=== PATIENT | female | born 1930 | race Caucasian/White ===

== ENCOUNTER 2017-02-04 08:37 | Emergency (ER) | payer MEDICARE, BC ==
[2017-02-04] MEDS ORDERED: Albuterol/Ipratropium 3.0-0.5 MG/3 ML Neb Soln NEB ONE (08:59)
--- NOTE | 2017-02-04 09:01 | EDM.PDOC ---
ED HPI GENERAL MEDICAL PROBLEM - General Chief Complaint: Respiratory Problem Stated Complaint: [id number] BACK PAIN COUGH Time Seen by Provider: 02/04/17 08:57 Source of Information: Reports: Patient History Limitations: Reports: No Limitations - History of Present Illness INITIAL COMMENTS - FREE TEXT/NARRATIVE: 86 yo white female c/o productive cough X 1 week and took Keflex last three days. PMHx. Pneumonia X 4 Onset Date: 01/28/17 Onset Time: 09:00 Duration: Day(s): Location: Reports: Chest, Generalized Severity: Moderate Improves with: Reports: None Worsens with: Reports: None Associated Symptoms: Reports: cough w sputum (yellow) Chest Pain Score (Numeric/FACES): 6 - Related Data Allergies Allergy/AdvReac Type Severity Reaction Status Date / Time alendronate sodium Allergy Cannot Verified 04/27/15 11:59 [From Fosamax] Remember lisinopril Allergy Cannot Verified 04/27/15 11:59 Remember pravastatin Allergy Cannot Verified 04/27/15 11:59 Remember simvastatin Allergy Cannot Verified 04/27/15 11:59 Remember Home Meds: Home Meds Hydrochlorothiazide [Hydrochlorothiazide] 25 mg PO DAILY 04/27/15 [History] LORazepam [Take Home: LORazepam 0.5 MG, 2 Tab Pack] 0.5 mg PO DAILY PRN [History] Losartan [Cozaar] 100 mg PO DAILY 04/27/15 [History] Lovastatin [Lovastatin] 20 mg PO BEDTIME 04/27/15 [History] Metoprolol Succinate [Metoprolol Succinate] 6.25 mg PO DAILY 04/27/15 [History] Raloxifene [Evista] 60 mg PO DAILY 04/27/15 [History] Acetaminophen 500 mg PO DAILY 04/28/15 [History] Ascorbic Acid [Vitamin C] 500 mg PO DAILY 04/28/15 [History] Aspirin [Ecotrin] 81 mg PO DAILY 04/28/15 [History] Fish Oil/[place]-3 Fatty Acids [Fish Oil 1,000 MG] 1 cap PO DAILY 04/28/15 [ History] ED ROS GENERAL - Review of Systems Review Of Systems: See Below Constitutional: Reports: Fever HEENT: Reports: No Symptoms Respiratory: Reports: Cough, Sputum Cardiovascular: Reports: No Symptoms Endocrine: Reports: No Symptoms GI/Abdominal: Reports: No Symptoms : Reports: No Symptoms Musculoskeletal: Reports: No Symptoms Skin: Reports: No Symptoms Neurological: Reports: No Symptoms Psychiatric: Reports: No Symptoms Hematologic/Lymphatic: Reports: No Symptoms Immunologic: Reports: No Symptoms ED EXAM, GENERAL - Physical Exam Exam: See Below Exam Limited By: No Limitations General Appearance: Alert, WD/WN, No Apparent Distress Eye Exam: Bilateral Eye: EOMI, PERRL Ears: Normal External Exam Nose: Normal Inspection Throat/Mouth: Normal Inspection, Normal Lips Head: Atraumatic, Normocephalic Neck: Normal Inspection, Supple Respiratory/Chest: No Respiratory Distress, Rhonchi Cardiovascular: Normal Peripheral Pulses, Regular Rate, Rhythm, No Edema GI/Abdominal: Normal Bowel Sounds Back Exam: Normal Inspection Extremities: Normal Inspection, Normal Range of Motion Neurological: Alert, Oriented, CN II-XII Intact Psychiatric: Normal Affect, Normal Mood Skin Exam: Warm, Dry, Intact, Normal Color Lymphatic: No Adenopathy Course - Vital Signs Last Recorded V/S: Last Vital Signs Temp 36.3 C 02/04/17 08:51 Pulse 96 02/04/17 09:07 Resp 16 02/04/17 08:51 BP 126/57 L 02/04/17 08:51 Pulse Ox 94 L 02/04/17 08:51 - Orders/Labs/Meds Orders: Active Orders 24 hr Category Date Time Status RT Aerosol Therapy [RC] ASDIRECTED Care 02/04/17 08:59 Ordered CULTURE SPUTUM + SMEAR [RM] Stat Lab 02/04/17 08:59 Uncollected Labs: Laboratory Tests 02/04/17 02/04/17 Range/Units 09:07 09:07 WBC 14.8 H (5.0-10.0) 10^3/uL RBC 4.45 (4.2-5.4) 10^6/uL Hgb 11.5 L (12.0-16.0) g/dL Hct 37.2 (37.0-47.0) % MCV 83.6 (80-100) fL MCH 25.8 L (27.0-34.0) pg MCHC 30.9 L (33.0-35.0) g/dL Plt Count 208 (150-450) 10^3/uL Neut % (Auto) 78.9 H (42.2-75.2) % Lymph % (Auto) 11.5 L (20.5-50.1) % [place] % (Auto) 8.0 (2-8) % Eos % (Auto) 1.3 (1.0-3.0) % Baso % (Auto) 0.3 (0.0-1.0) % Lactic Acid 1.6 (0.5-2.2) mmol/L Meds: Medications Discontinued Medications Generic Name Dose Route Start Last Admin Trade Name Cyndee PRN Reason Stop Dose Admin Albuterol/Ipratropium 3 ml 02/04/17 08:59 02/04/17 09:06 Duoneb 3.0-0.5 Mg/3 Ml NEB 02/04/17 09:00 3 ml ONETIME ONE Administration Ceftriaxone Sodium 1 gm 02/04/17 09:53 Rocephin IM 02/04/17 09:54 ONETIME ONE Departure - Departure Time of Disposition: 09:55 Disposition: Home, Self-Care 01 Condition: Good Clinical Impression: Pneumonia Qualifiers: Pneumonia type: due to unspecified organism Laterality: bilateral Lung location : lower lobe of lung Qualified Code(s): J18.9 - Pneumonia, unspecified organism - Discharge Information Instructions: Community-Acquired Pneumonia, Adult, [id number] Forms: ED Department Discharge Additional Instructions: Rest Increase intake of Fluids ( Juice / Water) Take medication as prescribed only: LEVAQUIN 500mg QD # 7 MUCINEX 600mg BID # 30 PRO AIR HFA MDI take 2 puffs Q 4hours as needed F/U w/ PCP - My Orders Last 24 Hours: My Active Orders 02/04/17 08:59 RT Aerosol Therapy [RC] ASDIRECTED CULTURE SPUTUM + SMEAR [RM] Stat - Assessment/Plan Last 24 Hours: My Active Orders 02/04/17 08:59 RT Aerosol Therapy [RC] ASDIRECTED CULTURE SPUTUM + SMEAR [RM] Stat
[2017-02-04] MEDS ORDERED: cefTRIAXone 1 GM Vial IM ONE (09:53)
== END 2017-02-04 10:18 | disposition home or self-care (01) ==
LOC: DL.ED 08:37
DX: J18.9 Pneumonia, unspecified organism (principal); Z88.8 Allergy status to other drugs, medicaments and biological substances; Z79.899 Other long term (current) drug therapy; Z79.82 Long term (current) use of aspirin
CPT/HCPCS: 36415; 71020; 83605; 85025; 87070; 87205; 94640; 96372; 99285; J0696; 87077; 87186; 99284

== ENCOUNTER 2018-10-02 08:24 | Emergency (ER) | payer MEDICARE, BC ==
[2018-10-02] MEDS: Ondansetron 4 MG/2 ML SDV IV ONE (08:50)
[2018-10-02] MEDS: Sodium Chloride 0.9% 1,000 ML IV ONE (08:50)
--- NOTE | 2018-10-02 09:01 | EDM.PDOC ---
ED HPI GENERAL MEDICAL PROBLEM - General Chief Complaint: General Stated Complaint: SICK Time Seen by Provider: 10/02/18 08:40 Source of Information: Reports: Patient History Limitations: Reports: No Limitations - History of Present Illness INITIAL COMMENTS - FREE TEXT/NARRATIVE: This 88 yo female patient reports to the ED due to nausea, vomiting and diarrhea. The patient reports her symptoms started last night and have continued throughout the night. The patient reports she feels a little weak at this time, but has no specific new aches or pain. The patient reports she has a hiatal hernia and has had episodes of nausea and vomiting, but normally only last 1-2 hours. The patient reports she is afraid of getting dehydrated. Onset: Today Duration: Constant Location: Reports: Abdomen Quality: Reports: Other Severity: Moderate Improves with: Reports: None Worsens with: Reports: None Context: Reports: Other Associated Symptoms: Reports: Nausea/Vomiting, Other (Diarrhea) - Related Data Allergies Allergy/AdvReac Type Severity Reaction Status Date / Time alendronate sodium Allergy Cannot Verified 10/02/18 08:37 [From Fosamax] Remember lisinopril Allergy Cannot Verified 10/02/18 08:37 Remember pravastatin Allergy Cannot Verified 10/02/18 08:37 Remember simvastatin Allergy Cannot Verified 10/02/18 08:37 Remember Home Meds: Home Meds Hydrochlorothiazide 25 mg PO DAILY 04/27/15 [History] LORazepam [Take Home: LORazepam 0.5 MG, 2 Tab Pack] 0.5 mg PO DAILY PRN [History] Losartan [Cozaar] 100 mg PO DAILY 04/27/15 [History] Lovastatin 20 mg PO BEDTIME 04/27/15 [History] Metoprolol Succinate 6.25 mg PO DAILY 04/27/15 [History] Raloxifene [Evista] 60 mg PO DAILY 04/27/15 [History] Acetaminophen 500 mg PO DAILY 04/28/15 [History] Ascorbic Acid [Vitamin C] 500 mg PO DAILY 04/28/15 [History] Aspirin [Ecotrin] 81 mg PO DAILY 04/28/15 [History] Fish Oil/[place]-3 Fatty Acids [Fish Oil 1,000 MG] 1 cap PO DAILY 04/28/15 [ History] Past Medical History HEENT History: Reports: Impaired Vision - Past Surgical History HEENT Surgical History: Reports: Cataract Surgery, Tonsillectomy Social & Family History - Caffeine Use Caffeine Use: Reports: Tea ED ROS GENERAL - Review of Systems Review Of Systems: ROS reveals no pertinent complaints other than HPI. ED EXAM, GENERAL - Physical Exam Exam: See Below Exam Limited By: No Limitations General Appearance: Alert, WD/WN, Moderate Distress Eye Exam: Bilateral Eye: EOMI, Normal Inspection, PERRL Ears: Normal External Exam, Normal Canal, Hearing Grossly Normal, Normal TMs Nose: Normal Inspection, Normal Mucosa, No Blood Throat/Mouth: Normal Inspection, Normal Lips, Normal Teeth, Normal Gums, Normal Oropharynx, Normal Voice, No Airway Compromise Head: Atraumatic, Normocephalic Neck: Normal Inspection, Supple, Non-Tender, Full Range of Motion Respiratory/Chest: No Respiratory Distress, Lungs Clear, Normal Breath Sounds, No Accessory Muscle Use, Chest Non-Tender Cardiovascular: Normal Peripheral Pulses, Regular Rate, Rhythm, No Edema, No Gallop, No JVD, No Murmur, No Rub GI/Abdominal: Normal Bowel Sounds, Soft, No Organomegaly, No Distention, No Abnormal Bruit, No Mass, Pelvis Stable, Rebound (RLQ), Tender (Female) Exam: Deferred Rectal (Female) Exam: Deferred Back Exam: Normal Inspection, Full Range of Motion, NT Extremities: Normal Inspection, Normal Range of Motion, Non-Tender, Normal Capillary Refill, No Pedal Edema Neurological: Alert, Oriented, CN II-XII Intact, Normal Cognition, Normal Gait, Normal Reflexes, No Motor/Sensory Deficits Psychiatric: Normal Affect, Normal Mood Skin Exam: Warm, Dry, Intact, Normal Color, No Rash Lymphatic: No Adenopathy Course - Vital Signs Last Recorded V/S: Last Vital Signs Temp 35.6 C 10/02/18 08:38 Pulse 97 10/02/18 08:38 Resp 16 10/02/18 08:38 BP 146/68 H 10/02/18 08:38 Pulse Ox 95 10/02/18 08:38 - Orders/Labs/Meds Orders: Active Orders 24 hr Category Date Time Status CULTURE URINE [RM] Urgent Lab 10/02/18 09:25 Received Labs: Laboratory Tests 10/02/18 10/02/18 10/02/18 Range/Units 08:49 08:49 08:49 WBC 13.7 H (5.0-10.0) 10^3/uL RBC 5.09 (4.2-5.4) 10^6/uL Hgb 15.2 D (12.0-16.0) g/dL Hct 47.7 H (37.0-47.0) % MCV 93.7 D (80-100) fL MCH 29.9 (27.0-34.0) pg MCHC 31.9 L (33.0-35.0) g/dL Plt Count 200 (150-450) 10^3/uL Neut % (Auto) 94.8 H (42.2-75.2) % Lymph % (Auto) 2.3 L (20.5-50.1) % [place] % (Auto) 2.7 (2-8) % Eos % (Auto) 0.2 L (1.0-3.0) % Baso % (Auto) 0.0 (0.0-1.0) % Sodium (135-145) mmol/L Potassium (3.6-5.0) mmol/L Chloride (101-111) mmol/L Carbon Dioxide (21.0-31.0) mmol/L Anion Gap BUN (7-18) mg/dL Creatinine (0.6-1.3) mg/dL Est Cr Clr Drug Dosing mL/min Estimated GFR (MDRD) BUN/Creatinine Ratio Glucose (74-105) mg/dL Lactic Acid 2.1 (0.5-2.2) mmol/L Calcium (8.4-10.2) mg/dl Total Bilirubin (0.2-1.0) mg/dL AST (10-42) IU/L ALT (10-60) IU/L Alkaline Phosphatase (42-121) IU/L Total Protein (6.7-8.2) g/dl Albumin (3.2-5.5) g/dl Globulin Albumin/Globulin Ratio Amylase 108 H (28-100) U/L Lipase 62 H (22-51) U/L Urine Color (YELLOW) Urine Appearance (CLEAR) Urine pH (5.0-9.0) Ur Specific [place] (1.005-1.030) Urine Protein (NEGATIVE) Urine Glucose (UA) (NEGATIVE) Urine Ketones (NEGATIVE) Urine Occult Blood (NEGATIVE) Urine Nitrite (NEGATIVE) Urine Bilirubin (NEGATIVE) Urine Urobilinogen (0.2-1.0) mg/dL Ur Leukocyte Esterase (NEGATIVE) Urine RBC /HPF Urine WBC (0-5/HPF) /HPF Ur Epithelial Cells (NOT SEEN) /HPF Urine Bacteria (0-FEW/HPF) /HPF Urine Mucus (NOT SEEN) /LPF 10/02/18 10/02/18 Range/Units 08:49 09:25 WBC (5.0-10.0) 10^3/uL RBC (4.2-5.4) 10^6/uL Hgb (12.0-16.0) g/dL Hct (37.0-47.0) % MCV (80-100) fL MCH (27.0-34.0) pg MCHC (33.0-35.0) g/dL Plt Count (150-450) 10^3/uL Neut % (Auto) (42.2-75.2) % Lymph % (Auto) (20.5-50.1) % [place] % (Auto) (2-8) % Eos % (Auto) (1.0-3.0) % Baso % (Auto) (0.0-1.0) % Sodium 138 (135-145) mmol/L Potassium 4.0 (3.6-5.0) mmol/L Chloride 101 (101-111) mmol/L Carbon Dioxide 23.0 (21.0-31.0) mmol/L Anion Gap 18.0 BUN 29 H (7-18) mg/dL Creatinine 1.3 (0.6-1.3) mg/dL Est Cr Clr Drug Dosing 26.82 mL/min Estimated GFR (MDRD) 39 BUN/Creatinine Ratio 22.30 Glucose 182 H (74-105) mg/dL Lactic Acid (0.5-2.2) mmol/L Calcium 9.0 (8.4-10.2) mg/dl Total Bilirubin 0.5 (0.2-1.0) mg/dL AST 26 (10-42) IU/L ALT 21 (10-60) IU/L Alkaline Phosphatase 76 (42-121) IU/L Total Protein 7.2 (6.7-8.2) g/dl Albumin 4.1 (3.2-5.5) g/dl Globulin 3.1 Albumin/Globulin Ratio 1.32 Amylase (28-100) U/L Lipase (22-51) U/L Urine Color Yellow (YELLOW) Urine Appearance Slightly cloudy (CLEAR) Urine pH 5.5 (5.0-9.0) Ur Specific [place] >= 1.030 (1.005-1.030) Urine Protein Trace H (NEGATIVE) Urine Glucose (UA) Negative (NEGATIVE) Urine Ketones Negative (NEGATIVE) Urine Occult Blood Trace-intact H (NEGATIVE) Urine Nitrite Negative (NEGATIVE) Urine Bilirubin Negative (NEGATIVE) Urine Urobilinogen 0.2 (0.2-1.0) mg/dL Ur Leukocyte Esterase Small H (NEGATIVE) Urine RBC 0-5 /HPF Urine WBC 5-10 H (0-5/HPF) /HPF Ur Epithelial Cells Many H (NOT SEEN) /HPF Urine Bacteria Moderate H (0-FEW/HPF) /HPF Urine Mucus Many H (NOT SEEN) /LPF Meds: Medications Discontinued Medications Generic Name Dose Route Start Last Admin Trade Name Freq PRN Reason Stop Dose Admin Sodium Chloride 1,000 mls @ 999 mls/hr 10/02/18 08:41 10/02/18 08:50 Normal Saline IV 10/02/18 09:41 999 mls/hr .BOLUS ONE Administration Ondansetron HCl 4 mg 10/02/18 08:41 10/02/18 08:50 Zofran IV 10/02/18 08:42 4 mg ONETIME ONE Administration - Re-Assessments/Exams Free Text/Narrative Re-Assessment/Exam: 10/02/18 10:03 Discussed the examination and lab results with the patient. The patient does not want a CT scan at this time despite the information given regarding an acute appendicitis. The patient agreed to getting a liter of IV fluids and being started on an antibiotic for her urinary tract infection. The patient was advised to return to the ED if she has any additional abdominal pain, continued nausea/vomiting or a fever. The patient declined any nausea medication for home use. Departure - Departure Time of Disposition: 10:06 Disposition: Home, Self-Care 01 Condition: Fair Clinical Impression: Gastroenteritis UTI (urinary tract infection) Qualifiers: Urinary tract infection type: site unspecified Hematuria presence: with hematuria Qualified Code(s): N39.0 - Urinary tract infection, site not specified ; R31.9 - Hematuria, unspecified - Discharge Information *PRESCRIPTION DRUG MONITORING PROGRAM REVIEWED*: Not Applicable *COPY OF PRESCRIPTION DRUG MONITORING REPORT IN PATIENT [place]: Not Applicable Instructions: Urinary Tract Infection, Adult, [id number], Viral Gastroenteritis, Adult, [id number] Forms: ED Department Discharge Care Plan Goals: The patient was advised of the examination and lab results during the visit. The patient was given IV fluids and IV Zofran while in the ED. The patient was discharged with a script for Cipro (250 mg) #6 to take 1 by mouth 2 times per day for 3 days. If the patient has any additional symptoms or concerns, the patient should either return to the emergency department or visit her primary care facility. - My Orders Last 24 Hours: My Active Orders 10/02/18 09:25 CULTURE URINE [RM] Urgent - Assessment/Plan Last 24 Hours: My Active Orders 10/02/18 09:25 CULTURE URINE [RM] Urgent
== END 2018-10-02 10:56 | disposition home or self-care (01) ==
LOC: DL.ED 08:24
DX: K52.9 Noninfective gastroenteritis and colitis, unspecified (principal); N39.0 Urinary tract infection, site not specified; R31.9 Hematuria, unspecified; Z79.899 Other long term (current) drug therapy; Z79.82 Long term (current) use of aspirin; Z88.8 Allergy status to other drugs, medicaments and biological substances
CPT/HCPCS: 36415; 80053; 81001; 82150; 83605; 83690; 85025; 87086; 96361; 96374; 99283; J2405; J7030; 87088; 87186